=== PATIENT | male | born 1985 | race Caucasian/White ===

== ENCOUNTER 2021-01-05 12:10 | Emergency (ER) | payer BC ==
--- OUTSIDE RECORDS SUMMARY | 2021-01-05 12:26 | XMS REPORT | Continuity of Care Document ---
:1985 Author Organization [facility] t Address [address] [place] [address] Care Team Providers Name Role Phone Unavailable Unavailable Unavailable Problems This patient has no known problems. Allergies, Adverse Reactions, Alerts This patient has no known allergies or adverse reactions. Medications This patient has no known medications. Procedures This patient has no known procedures. Encounters Start End Encounter Admission Attending Care Care Encounter Source Date/Time Date/Time Type Type Clinicians Facility Department ID 2020-11-30 2020-11-30 Outpatient [facility] [id number] [facility]00 [facility] ent Clinics 2020-11-22 2020-11-22 Outpatient [facility] [id number] [facility]00 [facility] ent Clinics Results This patient has no known results.
[2021-01-05 12:57] LABS: Absolute Lymphocytes (CBC) 1.4 K/uL (0.7-4.9); Basophils % 0.4 % (0-1.3); Hematocrit 38.6 % (39.6-49.0); Lymphocytes % 22.2 % (15.3-44.8); MPV 8.5 fL (7.6-11.3)
[2021-01-05 13:00] LABS: Potassium 5.2 mmol/L (3.5-5.1)
[2021-01-05] MEDS ORDERED: NA CHLORIDE 0.9% 1,000 ML ONE ×2 (13:00→14:26)
[2021-01-05] MEDS ORDERED: D50W 25 GM/50 ML SYRINGE IV ONE (14:26)
[2021-01-05] MEDS ORDERED: INSULIN -REGULAR HUMAN 50 UNIT/0.5 ML ML ONE (14:26)
[2021-01-05 15:15] LABS: Urine Blood Negative (Negative); Urine Glucose 1+ (Negative); Urine Protein Negative (Negative); Urine Specific Gravity 1.015 (1.005-1.030); Urine pH 5.5 (5.0-7.0)
[2021-01-05 15:33] LABS: BUN Blood Urea Nitrogen 41 mg/dL (7-18); Bicarbonate 24 mmol/L (21-32); Glucose Level 58 mg/dL (74-106); Potassium 4.4 mmol/L (3.5-5.1); Sodium Level 143 mmol/L (136-145)
--- NOTE | 2021-01-05 16:45 | EDPHYS ---
Physician Documentation [facility] Name: Evaristo Zhang Age: 35 yrs Sex: Male : 1985 Arrival Date: 01/05/2021 Time: 12:14 Bed 2 Private MD: ED Physician Gosia uGthrie HPI: 01/05 15:07 This 35 yrs old Male presents to ER via Ambulatory with complaints of COVID+, kb Vomiting/Diarrhea. 15:07 The patient presents to the emergency department with nausea, vomiting, diarrhea. kb Onset: The symptoms/episode began/occurred 5 day(s) ago. Possible causes: COVID. The symptoms are aggravated by nothing. The symptoms are alleviated by nothing. Associated signs and symptoms: Pertinent positives: diarrhea, nausea, vomiting. Severity of symptoms: At their worst the symptoms were moderate in the emergency department the symptoms are unchanged. The patient has not experienced similar symptoms in the past. The patient has not recently seen a physician. Reports n/v/d for 5 days. COVID + on Friday. Historical: - Allergies: 12:34 No Known Allergies; iw - Home Meds: 12:34 Adderall oral [Active]; iw - PMHx: 12:34 ADHD; iw - PSHx: 12:34 None; iw - Immunization history:: Client reports having NOT received the Covid vaccine. - Social history:: Smoking status: Patient denies any tobacco usage or history of. ROS: 15:10 Cardiovascular: Negative for chest pain, palpitations, and edema. kb 15:10 Constitutional: Positive for fever, malaise. 15:10 Abdomen/GI: Positive for nausea, vomiting, and diarrhea, Negative for abdominal pain. 15:10 All other systems are negative. Exam: 12:50 ECG was reviewed by the Attending Physician. kb 16:45 Constitutional: This is a well developed, well nourished patient who is awake, alert, kb and in no acute distress. Head/Face: Normocephalic, atraumatic. ENT: Moist Mucous membranes Cardiovascular: Regular rate and rhythm with a normal S1 and S2. No gallops, murmurs, or rubs. No pulse deficits. Respiratory: Respirations even and unlabored. No increased work of breathing, no retractions or nasal flaring. Abdomen/GI: Soft, non-tender. No distention Skin: Warm, dry with normal turgor. Normal color. MS/ Extremity: Pulses equal, no cyanosis. Neurovascular intact. Full, normal range of motion. Neuro: Awake and alert, GCS 15, oriented to person, place, time, and situation. Moves all extremities. Normal gait. Psych: Awake, alert, with orientation to person, place and time. Behavior, mood, and affect are within normal limits. Vital Signs: 12:29 BP 84 / 52; Pulse 166; Resp 20 S; Temp 98.4(O); Pulse Ox 100% on R/A; Weight 99.79 kg aa5 (R); Height 6 ft. 1 in. (185.42 cm) (R); 12:39 BP 98 / 66; Pulse 88; Resp 20; Pulse Ox 100% on R/A; hb 13:20 BP 103 / 65; Pulse 94; Resp 19; Pulse Ox 100% on R/A; hb 14:15 BP 108 / 67; Pulse 66; Resp 12; Pulse Ox 100% on R/A; sv 15:04 BP 113 / 69; Pulse 82; Resp 18; Pulse Ox 100% on R/A; hb 12:29 Body Mass Index 29.03 (99.79 kg, 185.42 cm) aa5 MDM: 12:15 Patient medically screened. kb 15:04 Data reviewed: vital signs, nurses notes. Data interpreted: Pulse oximetry: on room air kb is 100 %. Interpretation: normal. Counseling: I had a detailed discussion with the patient and/or guardian regarding: the historical points, exam findings, and any diagnostic results supporting the discharge/admit diagnosis, lab results, the need for outpatient follow up, a family practitioner, to return to the emergency department if symptoms worsen or persist or if there are any questions or concerns that arise at home. 16:43 ED course: Pt tolerating PO intake. Feeling better. kb 01/05 12:31 Order name: CBC with Diff; Complete Time: 13:23 kb 01/05 12:31 Order name: Basic Metabolic Panel; Complete Time: 13:23 kb 01/05 12:35 Order name: CPK; Complete Time: 13:23 kb 01/05 15:06 Order name: BMP; Complete Time: 15:54 kb 01/05 15:14 Order name: Urine Dipstick-Ancillary; Complete Time: 15:18 EDMS 01/05 12:31 Order name: IV Start; Complete Time: 12:42 kb 01/05 12:31 Order name: EKG; Complete Time: 12:31 kb 01/05 12:31 Order name: EKG - Nurse/Tech; Complete Time: 12:42 kb 01/05 12:35 Order name: Urine Dipstick-Ancillary (obtain specimen); Complete Time: 15:09 kb 01/05 15:30 Order name: PO challenge; Complete Time: 15:31 kb EC:50 Rate is 79 beats/min. Rhythm is regular. QRS [place] is Normal. SC interval is normal at kb 130 msec. QRS interval is normal at 76 msec. QT interval is normal at 330 msec. Administered Medications: 12:42 Drug: NS 0.9% 1000 ml Route: IV; Rate: 1000 ml; Site: right antecubital; sv 13:30 Follow up: Response: No adverse reaction; IV Status: Completed infusion; IV Intake: sv 1000ml 14:07 Drug: Insulin Regular Human 5 units {Co-Signature: hb (Justina Gaitan RN).} Route: IVP; sv Site: right antecubital; 14:28 Follow up: Response: No adverse reaction sv 14:07 Drug: NS 0.9% 1000 ml Route: IV; Rate: 1000 ml; Site: right antecubital; sv 15:12 Follow up: Response: No adverse reaction; IV Status: Completed infusion; IV Intake: sv 1000ml 14:07 Drug: D50W 50 ml Route: IVP; Site: right antecubital; sv 14:27 Follow up: Response: No adverse reaction sv Disposition Summary: 01/05/21 16:44 Discharge Ordered Location: Home kb Condition: Stable kb Diagnosis - Vomiting kb - Diarrhea, unspecified kb - Coronavirus infection, unspecified kb Followup: kb - With: Emergency Department - When: As needed - Reason: Worsening of condition Followup: kb - With: Private Physician - When: 2 - 3 days - Reason: Recheck today's complaints, Continuance of care, Re-evaluation by your physician Discharge Instructions: - Discharge Summary Sheet kb - Viral Respiratory Infection, [id number] kb - COVID-19 kb Forms: - Medication Reconciliation Form kb - Thank You Letter kb - Antibiotic Education kb - Prescription Opioid Use kb Prescriptions: - Zofran 4 mg Oral Tablet - take 1 tablet by ORAL route every 6 hours As needed; 20 tablet; Refills: 0, kb Product Selection Permitted Signatures: Dispatcher [employer] Sara Gomez FNP-C FNP-Ckb Verde, Stephanie, RN RN Chelsi Alcaraz RN RN iw Justina Gaitan RN Corrections: (The following items were deleted from the chart) 15:32 15:30 Accucheck ordered. luis m sv
--- NOTE | 2021-01-05 16:45 | ER ---
Nurse's Notes [facility] Name: Evaristo Zhang Age: 35 yrs Sex: Male : 1985 Arrival Date: 01/05/2021 Time: 12:14 Bed 2 Private MD: Diagnosis: Vomiting;Diarrhea, unspecified;Coronavirus infection, unspecified Presentation: 01/05 12:28 Chief complaint: Patient states: tested positive for covid-19 on Friday. Pt reports aa5 fever, vomiting, diarrhea, and slight cough. Coronavirus screen: Client reports previous positive COVID test result. Ebola Screen: Patient negative for fever greater than or equal to 101.5 degrees Fahrenheit, and additional compatible Ebola Virus Disease symptoms. Initial Sepsis Screen: Does the patient meet any 2 criteria? Systolic BP < 90 mmHg. HR > 90 bpm. Does the patient have a suspected source of infection? Yes:. Risk Assessment: Do you want to hurt yourself or someone else? Patient reports no desire to harm self or others. Onset of symptoms was January 2021. 12:28 Method Of Arrival: Ambulatory aa5 12:28 Acuity: HONEY 2 aa5 Historical: - Allergies: 12:34 No Known Allergies; iw - Home Meds: 12:34 Adderall oral [Active]; iw - PMHx: 12:34 ADHD; iw - PSHx: 12:34 None; iw - Immunization history:: Client reports having NOT received the Covid vaccine. - Social history:: Smoking status: Patient denies any tobacco usage or history of. Screenin:35 Abuse screen: Denies threats or abuse. Denies injuries from another. Nutritional sv screening: No deficits noted. Tuberculosis screening: No symptoms or risk factors identified. Fall Risk None identified. Assessment: 12:35 General: Appears in no apparent distress. comfortable, well groomed, well developed, sv Behavior is calm, cooperative, appropriate for age. General: Reports fever TMax 99.8. Pain: Denies pain. Neuro: Level of Consciousness is awake, alert, obeys commands, Oriented to person, place, time, situation, Moves all extremities. Full function Gait is steady, Speech is normal. Cardiovascular: Patient's skin is warm and dry. Respiratory: Airway is patent Respiratory effort is even, unlabored, Respiratory pattern is regular, symmetrical. GI: Abdomen is flat, Reports diarrhea, nausea, vomiting. Derm: Skin is pink, warm \T\ dry. 14:07 Reassessment: Patient appears in no apparent distress at this time. Patient and/or sv family updated on plan of care and expected duration. Pain level reassessed. Patient is alert, oriented x 3, equal unlabored respirations, skin warm/dry/pink. 14:27 Reassessment: Patient appears in no apparent distress at this time. Patient and/or sv family updated on plan of care and expected duration. Pain level reassessed. Patient is alert, oriented x 3, equal unlabored respirations, skin warm/dry/pink. 15:12 Reassessment: Patient appears in no apparent distress at this time. Patient and/or sv family updated on plan of care and expected duration. Pain level reassessed. Patient is alert, oriented x 3, equal unlabored respirations, skin warm/dry/pink. 16:07 Reassessment: Patient appears in no apparent distress at this time. Patient and/or hb family updated on plan of care and expected duration. Pain level reassessed. Patient is alert, oriented x 3, equal unlabored respirations, skin warm/dry/pink. Vital Signs: 12:29 BP 84 / 52; Pulse 166; Resp 20 S; Temp 98.4(O); Pulse Ox 100% on R/A; Weight 99.79 kg aa5 (R); Height 6 ft. 1 in. (185.42 cm) (R); 12:39 BP 98 / 66; Pulse 88; Resp 20; Pulse Ox 100% on R/A; hb 13:20 BP 103 / 65; Pulse 94; Resp 19; Pulse Ox 100% on R/A; hb 14:15 BP 108 / 67; Pulse 66; Resp 12; Pulse Ox 100% on R/A; sv 15:04 BP 113 / 69; Pulse 82; Resp 18; Pulse Ox 100% on R/A; hb 12:29 Body Mass Index 29.03 (99.79 kg, 185.42 cm) aa5 ED Course: 12:14 Patient arrived in ED. mr 12:15 Sara Ashby FNP-C is [facility]. kb 12:15 Gosia Guthrie MD is Attending Physician. kb 12:27 Arm band placed on. aa5 12:29 Triage completed. aa5 12:35 Patient has correct armband on for positive identification. Bed in low position. Call sv light in reach. Side rails up X 1. monitoring engineer on. Pulse ox on. NIBP on. Door closed. Head of bed elevated. 12:35 Inserted saline lock: 20 gauge in right antecubital area, using aseptic technique. sv Blood collected. Flushed right antecubital with 2 ml normal saline. 12:41 Micaela Ellis, RN is Primary Nurse. sv 12:45 EKG done, by ED staff, reviewed by Sara ORTIZ. sv 15:09 Repeat lab(s) drawn. by tx, sent to lab. sv 15:19 Awaiting lab results. sv 16:54 No provider procedures requiring assistance completed. IV discontinued, intact, hb bleeding controlled, No redness/swelling at site. Administered Medications: 12:42 Drug: NS 0.9% 1000 ml Route: IV; Rate: 1000 ml; Site: right antecubital; sv 13:30 Follow up: Response: No adverse reaction; IV Status: Completed infusion; IV Intake: sv 1000ml 14:07 Drug: Insulin Regular Human 5 units {Co-Signature: morales (Justina Gaitan RN).} Route: IVP; sv Site: right antecubital; 14:28 Follow up: Response: No adverse reaction sv 14:07 Drug: NS 0.9% 1000 ml Route: IV; Rate: 1000 ml; Site: right antecubital; sv 15:12 Follow up: Response: No adverse reaction; IV Status: Completed infusion; IV Intake: sv 1000ml 14:07 Drug: D50W 50 ml Route: IVP; Site: right antecubital; sv 14:27 Follow up: Response: No adverse reaction sv Intake: 13:30 IV: 1000ml; Total: 1000ml. sv 15:12 IV: 1000ml; Total: 2000ml. sv 15:31 PO: 240ml (Water); Total: 2240ml. sv Outcome: 16:44 Discharge ordered by . kb 16:54 Discharged to home ambulatory. hb 16:54 Condition: stable 16:54 Discharge instructions given to patient, Instructed on discharge instructions, follow up and referral plans. medication usage, Demonstrated understanding of instructions, follow-up care, medications, Prescriptions given X 1. 16:54 Patient left the ED. hb Signatures: Sara Ashby, CLOTHES DRIER ASSEMBLER-C CLOTHES DRIER ASSEMBLER-Ckb Micaela Ellis, RN RN Daphne Hazel mr Chelsi Hamilton, RN RN iw Luanne Samaniego RN RN aa5 Justina Gaitan RN RN hb Justina Gaitan RN hb Corrections: (The following items were deleted from the chart) 12:31 12:28 Initial Sepsis Screen: Does the patient meet any 2 criteria? No. Patient's aa5 initial sepsis screen is negative. Does the patient have a suspected source of infection? No. Patient's initial sepsis screen is negative. aa5 12:32 12:28 Acuity: HONEY 3 aa5 aa5
[2021-01-05 17:01] VITALS: TEMP 98.4; O2SAT 100
[2021-01-05] MEDS ORDERED: ONDANSETRON 4 MG/2 ML VIAL ONE (17:11)
[2021-01-05 17:53] VITALS: BP 113/69
--- NOTE | 2021-01-06 15:14 | EKG ---
Test Date: 2021-01-05 Test Time: 12:44:18 Captain Airline Pilot: LISBET MEASUREMENT RESULTS: Intervals: Rate: 79 AK: 130 QRSD: 76 QT: 330 QTc: 378 [place]: P: 67 AK: 130 QRS: 57 T: 50 INTERPRETIVE STATEMENTS: Normal sinus rhythm with sinus arrhythmia Normal ECG No previous ECG available for comparison Electronically Signed On 01-06-21 15:11:01 CDT by Donnell Grace
== END 2021-01-05 16:54 | disposition home or self-care (01) ==
LOC: ER 12:10
DX: U07.1 COVID-19 (principal); R19.7 Diarrhea, unspecified; F90.9 Attention-deficit hyperactivity disorder, unspecified type
CPT/HCPCS: 96361; 93005; 85025; 80048 ×2; 36415; 82550; 81003; 96375; 96374; 99284; J7030 ×2; J2405

== ENCOUNTER 2021-02-15 07:03 | Day surgery (SDC) | payer BC ==
[2021-02-15] MEDS ORDERED: Ringers Lactate 1,000 ML IV ONE (07:45)
[2021-02-15] MEDS ORDERED: propofoL 200 MG/20 ML VIAL IV ONE (08:34)
[2021-02-15] MEDS ORDERED: LIDOCAINE 1% MPF 5 ML VIAL ONE (08:34)
--- NOTE | 2021-02-15 08:52 | OP ---
Surgeon: Rusty Doshi MD Procedure Performed: Esophagogastroduodenoscopy. Indication For Procedure: Recent GI bleed due to gastric ulcers. Plan For Anesthesia: Monitored anesthesia care. Complexity: Average. Technique: After obtaining informed consent from the patient and explaining risks and complications, which include, but are not limited to bleeding, infection, perforation, and anesthesia complications . The patient was placed in left lateral position. Sedation was given. From then on, the scope was advanced into the mouth and carefully guided up till the second portion of the duodenum. After the completion of examination, scope and equipment were withdrawn and procedure terminated in a safe [facility] er. Findings: Esophagus: In the distal esophagus, the Z-line was irregular. Biopsies taken. The GE ju nction was at 41 cm. Stomach: Mild patchy erythema seen in the body. Biopsies taken. In the antrum, mild patchy erythem a seen along with evidence of healed ulcers in the pre-pyloric region. Biopsies taken. Duodenum: The bulb and second portion appeared normal. Complications: None. Tolerance To Anesthesia: Excellent. Postoperative Diagnoses: Healed gastric ulcers, gastritis. Plan: 1.Await pathology results. 2.Continue PPI. 3.Follow up in the GI Clinic. US/MODL Voice ID: [id number] Report ID: [id number]
[2021-02-15 09:12] VITALS: O2SAT 100
[2021-02-15 09:13] VITALS: TEMP 97.7
[2021-02-15 09:15] VITALS: BP 114/73
== END 2021-02-15 08:51 | disposition home or self-care (01) ==
LOC: OR 07:03
PROVIDERS: ATTEND Internal Medicine Gastroenterology
PROC: 0DB78ZX Excision of Stomach, Pylorus, Via Natural or Artificial Opening Endoscopic, Diagnostic (ICD-10-PCS; 2021-02-15)
PROC: 0DB38ZX Excision of Lower Esophagus, Via Natural or Artificial Opening Endoscopic, Diagnostic (ICD-10-PCS; principal; 2021-02-15 08:00)
DX: K25.4 Chronic or unspecified gastric ulcer with hemorrhage (principal); K29.50 Unspecified chronic gastritis without bleeding; K20.90 Esophagitis, unspecified without bleeding; K22.70 Barrett's esophagus without dysplasia
CPT/HCPCS: 88312; 88305; 43239; J2704; J7120